=== PATIENT | male | born 1960 | race African-American/Black ===

== ENCOUNTER 2024-06-13 17:40 | Emergency (ER) | payer OTHER ==
[2024-06-13] MEDS ORDERED: Ketorolac Tromethamine 30 MG (1 mL) VIAL ONE (19:29)
[2024-06-13] MEDS ORDERED: HYDROcodone/Acetaminophen 5/325 mg Tablet ONE (19:29)
== END 2024-06-13 20:00 | disposition home or self-care (01) ==
LOC: ERS 17:40
DX: S79.821A Other specified injuries of right thigh, initial encounter (principal); W22.09XA Striking against other stationary object, initial encounter
CPT/HCPCS: 96372; 99283; J1885